=== PATIENT | female | born 2005 | race Caucasian/White ===

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

== ENCOUNTER 2024-04-24 16:21 | Emergency (ER) | payer SELFPAY ==
[~2024-04-24] VITALS: Ht 162.6 cm; Wt 88.5 kg
[2024-04-24 17:03] VITALS: BP 159/83; PULSE 93; RESP 18; TEMP 97.8; O2SAT 97
[2024-04-24 17:45] LABS: BASOPHIL % 0.3 % (0.1-1.2); EOSINOPHIL # 0.1 10^3/uL (0.0-0.2); EOSINOPHIL % 0.6 % (0.0-5.0); HEMATOCRIT(ML) 48.2 % (36.0-46.0); HEMOGLOBIN 15.4 g/dL (12.4-14.8); LYMPHOCYTES % 20.6 % (24.0-44.0); MEAN CORP VOLUME 87.6 fL (78-100); MONOCYTES # 0.6 10^3/uL (0.0-0.4); MONOCYTES % 6.2 % (5.0-12.0); NEUTROPHIL # 7.3 10^3/uL (1.8-8.0); NEUTROPHILS % 72.1 % (41.0-85.0); PLATELET COUNT 378 10^3/uL (150-400); RED CELL DISTRIBUTION WIDTH 12.2 % (11.5-14.5); WHITE BLOOD CELL 10.2 10^3/uL (4.5-12.5)
[2024-04-24 17:47] LABS: BILIRUBIN,URINE 1+ (NEGATIVE); LEUKOCYTE ESTERASE ,URINE NEGATIVE (NEGATIVE); NITRATE,URINE NEGATIVE (NEGATIVE); UROBILINOGEN,URINE 0.2 E.U./dL (0.2)
[2024-04-24 17:52] LABS: +ADD MANUAL DIFF(NO CHRG) NO; UA COLOR AMBER
[2024-04-24 17:53] LABS: APPEARANCE,URINE CLOUDY
[2024-04-24 18:00] VITALS: BP 150/77; PULSE 88; RESP 18; O2SAT 98
[2024-04-24 18:09] LABS: INR 1.1; PROTHROMBIN PROTIME 11.2 SEC (9.7-11.6)
[2024-04-24 18:10] LABS: ALANINE AMINOTRANSFERASE(ML) 17 U/L (12-78); ALBUMIN/GLOBULIN RATIO 0.975; ALKALINE PHOSPHATASE 101 U/L (50-136); ANION GAP 14.5; ASPARTATE AMINO TRANSFERASE 14 U/L (0-35); CALCIUM 9.4 mg/dL (8.4-10.5); CARBON DIOXIDE 24.1 mmol/L (20.0-32); CREATININE SERUM 0.74 mg/dL (0.59-1.40); EST GFR, NON-AA 100.1 (>/=60); GLUCOSE 92 mg/dL (74-106); POTASSIUM 3.6 mmol/L (3.6-5.2); SODIUM 136 mmol/L (132-145); TROPONIN I HIGH SENSITIVITY < 4 ng/L (0-50)
[2024-04-24 19:23] VITALS: BP 145/80; PULSE 98; RESP 18; O2SAT 97
[2024-04-24] MEDS: TORADOL IM STA (19:50)
[2024-04-24 19:54] VITALS: BP 135/87; PULSE 99; RESP 20; O2SAT 98
[2024-04-24] MEDS ORDERED: TORADOL ONE (20:03)
== END 2024-04-24 19:55 | disposition home or self-care (01) ==
LOC: ER 16:21
DX: R10.12 Left upper quadrant pain (principal); F12.90 Cannabis use, unspecified, uncomplicated
CPT/HCPCS: 99285; 74177; 71045; 96372; 87086; 80053; 85025; 36415; 85379; 84484; 81001; 83690; 85610; 85730; 84703; 93005; J1885; Q9965